=== PATIENT | female | born 1980 | race Caucasian/White ===

== ENCOUNTER 2017-02-24 07:19 | Day surgery (SDC) | payer OTHER ==
[2017-02-24 07:38] VITALS: BMI 40.7
[2017-02-24] MEDS ORDERED: Propofol 10 mg/ml Inj (20 ML) ONE (09:27)
[2017-02-24] MEDS ORDERED: Lactated Ringer's 1,000 ML IV ONE (09:30)
[2017-02-24] MEDS ORDERED: Lactated Ringer's 500 ML IV SCH (09:45)
[2017-02-24 09:53] VITALS: TEMP 97.3
[2017-02-24 10:17] VITALS: O2SAT 100
[2017-02-24 10:57] VITALS: BP 111/67; PULSE 77; RESP 22
== END 2017-02-24 10:50 | disposition home or self-care (01) ==
LOC: C.ENDO 07:19
PROVIDERS: ATTEND Internal Medicine
DX: Z01.818 Encounter for other preprocedural examination (principal); E66.01 Morbid (severe) obesity due to excess calories; K29.70 Gastritis, unspecified, without bleeding; Z68.41 Body mass index [BMI] 40.0-44.9, adult; Z86.711 Personal history of pulmonary embolism; Z86.718 Personal history of other venous thrombosis and embolism; Z79.82 Long term (current) use of aspirin
CPT/HCPCS: 43239; 84703; 88305; J2704; J7120